=== PATIENT | female | born 1950 | race American Indian/Alaskan Native ===

== ENCOUNTER 2017-07-17 09:30 | Emergency (ER) | payer BC, OTHER ==
[2017-07-17 09:30] VITALS: BMI 29.6
[2017-07-17 09:50] VITALS: RESP 16
[2017-07-17] MEDS ORDERED: Lidocaine 5% Patch TD STA (09:58)
[2017-07-17] MEDS ORDERED: Lidocaine 5% Patch TD ONE (10:09)
--- NOTE | 2017-07-17 10:24 | C.PDOC ---
History Of Present Illness 67 y/o female with past medical history of herniated disk and sciatica presents to the ED complaining of left lower back pain, rated 10, since 3 weeks. Pain is sharp, radiates to the left leg and is worse when she flexes her back or uses the stairs. Patient notes taking tramadol and ibuprofen without relief. Patient was seen at [facility] and was advised to take the epidural injection but she wasnt able to afford it. Denies any further medical complaints. PMD: [facility] Time Seen by Provider: 07/17/17 09:55 Chief Complaint (Nursing): Back Pain History Per: Patient History/Exam Limitations: no limitations Onset/Duration Of Symptoms: Other (x 3 weeks) Current Symptoms Are (Timing): Still Present Quality Of Discomfort: Sharp Pain Scale Rating Of: 10 Past Medical History Vital Signs: Last Vital Signs Temp 98.3 F 07/17/17 09:35 Pulse 115 H 07/17/17 09:35 Resp 16 07/17/17 09:35 BP 148/74 07/17/17 09:35 Pulse Ox 96 07/17/17 11:29 - Medical History PMH: Back Problems, Diabetes, HTN Denies: Asthma, Bronchitis, Cardia Arrhythmia, CHF, COPD, Emphysema, Hypercholesterolemia, Mitral Valve Prolapse, Peripheral Edema, Pneumonia, Pulmonary Embolism, Chronic Kidney Disease, Sleep Apnea Other PMH: Herniated disk, Sciatica Surgical History: Cholecystectomy - [facility] COLONOSCOPY (05/04/14) Family History: States: Unknown Family Hx - Social History Hx Tobacco Use: No Hx Alcohol Use: No Hx Substance Use: No - Immunization History Hx Tetanus Toxoid Vaccination: No Hx Influenza Vaccination: Yes Hx Pneumococcal Vaccination: No Review Of Systems Except As Marked, All Systems Reviewed And Found Negative. (As per HPI, otherwise negative) Musculoskeletal: Positive for: Back Pain (radiates to the left leg) Physical Exam - Physical Exam Appears: Well, In Acute Distress (Patient is crying and is uncomfortable) Skin: Normal Color, Warm, Dry Head: Atraumatic, Normacephalic Eye(s): bilateral: Normal Inspection, PERRL, EOMI Nose: Normal Throat: Normal Neck: Normal Chest: Symmetrical, No Deformity Cardiovascular: Rhythm Regular, No Murmur Respiratory: Normal Breath Sounds, No Accessory Muscle Use Gastrointestinal/Abdominal: Normal Exam Back: Normal Inspection, Other (Tenderness to left lumbar region) Extremity: No Deformity, Other (pain with fluctuation of the left leg) Neurological/Psych: Oriented x3, Normal Speech, Normal Cognition, Normal Cranial Nerves, Normal Motor, Normal Sensation, Normal Reflexes Gait: Steady ED Course And Treatment O2 Sat by Pulse Oximetry: 96 (RA) Pulse Ox Interpretation: Normal Medical Decision Making Medical Decision Making: Time: 09:58 Initial Impression: Lower back pain Plan: Acetaminophen 975mg PO Diazepam 5mg PO Ketorolac 60mg IM Lidocaine 5% 1ea TD Scribe Attestation: Documented by Stan David acting as a scribe for Nicolas English MD. Scribe Attestation: All medical record entries made by the Scribe were at my direction and personally dictated by me. I have reviewed the chart and agree that the record accurately reflects my personal performance of the history, physical exam, medical decision making, and the department course for this patient. I have also personally directed, reviewed, and agree with the discharge instructions and disposition. Disposition Counseled Patient/Family Regarding: Diagnosis, Need For Followup, Rx Given - Disposition Disposition: HOME/ ROUTINE Disposition Time: 11:22 Condition: IMPROVED Additional Instructions: Ms. Sanchez, thank you for letting us take care of you today. Return to the ER if your symptoms worsen, or if any problems. Take the medication listed below as prescribed. Please follow up with your doctor at [facility] next week for a re -evaluation. Prescriptions: Ibuprofen [Motrin Tab] 1 tab PO Q8 PRN #30 tab PRN Reason: Pain, Moderate (4-7) Lidocaine 5% [Lidoderm] 1 ea TD Q12 PRN #20 patch PRN Reason: Pain, Moderate (4-7) oxyCODONE/Acetaminophen [Percocet 5/325 mg Tab] 1 tab PO QID PRN #16 tab PRN Reason: Pain, Severe (8-10) Instructions: Lumbar Disc Herniation (ED), Back Pain (ED) Forms: [facility] (Romanian) Print Language: COLOMBIAN - POA Present On Arrival: None - Clinical Impression Clinical Impression: Low back pain
[2017-07-17 11:53] VITALS: BP 128/77; PULSE 81; TEMP 97.5; O2SAT 97
== END 2017-07-17 12:01 | disposition home or self-care (01) ==
LOC: C.ER 09:30
DX: M54.5 Low back pain (principal)
CPT/HCPCS: 96372; 99284; J1885

== ENCOUNTER 2017-07-20 04:03 | Inpatient (IN) | payer BC, MEDICARE ==
[2017-07-20 04:04] VITALS: BMI 29.6
--- NOTE | 2017-07-20 05:11 | C.PDOC ---
History Of Present Illness 67 year old female presents to ED with complaints of severe left lower extremity pain and has a past medical history of back pain, HTN, diabetes mellitus, and sciatica. Notes that pain radiates down the lateral aspect of her leg in a "shooting" sensation. Patient was last seen in [facility] on July 17 for the same pain. Time Seen by Provider: 07/20/17 05:07 Chief Complaint (Nursing): Lower Extremity Problem/Injury History Per: Patient History/Exam Limitations: no limitations Onset/Duration Of Symptoms: Persistent Current Symptoms Are (Timing): Still Present Severity: Severe Past Medical History Reviewed: Historical Data, Nursing Documentation, Vital Signs Vital Signs: Last Vital Signs Temp 98.6 F 07/20/17 06:53 Pulse 95 H 07/20/17 06:53 Resp 20 07/20/17 06:53 BP 194/97 H 07/20/17 06:53 Pulse Ox 98 07/20/17 06:53 - Medical History PMH: Back Problems, Diabetes, HTN, Chronic Pain (back pain) Denies: No Chronic Diseases, Asthma, Bronchitis, Cardia Arrhythmia, CHF, COPD , Emphysema, Hypercholesterolemia, Mitral Valve Prolapse, Peripheral Edema, Pneumonia, Pulmonary Embolism, Chronic Kidney Disease, Sleep Apnea Surgical History: Cholecystectomy, Endoscopy (05/04/2017) - [facility] Procedures COLONOSCOPY (05/04/14) Family History: States: Unknown Family Hx - Social History Hx Tobacco Use: No Hx Alcohol Use: No Hx Substance Use: No - Immunization History Hx Tetanus Toxoid Vaccination: No Hx Influenza Vaccination: Yes Hx Pneumococcal Vaccination: No Review Of Systems Except As Marked, All Systems Reviewed And Found Negative. Musculoskeletal: Positive for: Leg Pain (severe left lower extremity pain, radiates down lateral aspect of leg) Physical Exam - Physical Exam Appears: No Acute Distress Skin: Normal Color, Warm, Dry Eye(s): bilateral: Normal Inspection, PERRL, EOMI Nose: Normal Throat: Normal Neck: Normal Cardiovascular: Rhythm Regular Respiratory: Normal Breath Sounds Gastrointestinal/Abdominal: Normal Exam Back: Normal Inspection, Straight Leg Raising (positive straight leg 30 degrees : left) Extremity: Normal ROM, No Deformity Neurological/Psych: Oriented x3, Normal Motor, Normal Sensation ED Course And Treatment O2 Sat by Pulse Oximetry: 98 (RA) Pulse Ox Interpretation: Normal Medical Decision Making Medical Decision Makin Initial plan: * Valium 5mg PO * Toradol 15mg IM * Percocet 2 tab PO * Re-eval 0638 Upon re-evaluation, patient is still in pain. will turn over to next attending. Disposition Counseled Patient/Family Regarding: Diagnosis - Disposition Disposition: HOSPITALIZED Disposition Time: 07:01 Condition: FAIR Forms: [facility] (Ivorian) - Clinical Impression Clinical Impression: Sciatica - Scribe Statement Masha Mederos Provider Attestation: Scribe Attestation: Documented by Masha Mederos acting as a scribe for Rebecca Lehman MD. Scribe Attestation: All medical record entries made by the Scribe were at my direction and personally dictated by me. I have reviewed the chart and agree that the record accurately reflects my personal performance of the history, physical exam, medical decision making, and the department course for this patient. I have also personally directed, reviewed, and agree with the discharge instructions and disposition.
[2017-07-20] MEDS ORDERED: Oxycodone/Acetaminophen 5/325 mg Tab PO STA (05:50)
[2017-07-20] MEDS ORDERED: Oxycodone/Acetaminophen 5/325 mg Tab ONE (05:56)
[2017-07-20] MEDS ORDERED: Morphine 4 MG/ML VIAL IV STA (07:22)
[2017-07-20 07:57] LABS: BASO % 1.1 % (0.0-2.0); EOS % 0.2 % (0.0-4.0); HEMOGLOBIN 14.9 g/dL (11.0-16.0); LYMPH # 0.7 K/uL (1.0-4.3); LYMPH % 15.9 % (20.0-40.0); MEAN CELL VOLUME 93.5 fL (81.0-99.0); MEAN CORPUSCULAR HEMOGLOBIN 32.1 pg (27.0-31.0); MEAN CORPUSCULAR HGB CONC 34.3 g/dL (33.0-37.0); MEAN PLATELET VOLUME 7.3 fL (7.2-11.7); MONO # 0.2 K/uL (0.0-0.8); NEUT # 3.4 K/uL (1.8-7.0); NEUT % 77.8 % (50.0-75.0); RBC 4.66 Mil/uL (3.80-5.20); RED CELL DISTRIBUTION WIDTH 13.4 % (11.5-14.5); WHITE BLOOD COUNT 4.4 K/uL (4.8-10.8)
[2017-07-20 08:15] LABS: ALB/GLOB RATIO 1.1 (1.0-2.1); ALBUMIN 4.2 g/dL (3.5-5.0); ALT/SGPT 41 U/L (9-52); AST/SGOT 32 U/L (14-36); BLOOD UREA NITROGEN 8 mg/dL (7-17); CALCIUM 8.5 mg/dl (8.6-10.4); GFR AFRICAN-AMERICAN > 60; GFR NON-AFRICAN AMERICAN > 60; LIPASE 338 U/L (23-300)
[2017-07-20] MEDS ORDERED: Morphine 4 MG/ML VIAL ONE (08:16)
[2017-07-20 08:18] LABS: SQUAMOUS EPITHIAL 2 /hpf (0-5); URINE BILIRUBIN NEGATIVE (NEGATIVE); URINE BLOOD NEGATIVE (NEGATIVE); URINE CLARITY Clear (Clear); URINE COLOR Straw (YELLOW); URINE GLUCOSE (UA) 2+ mg/dL (Normal); URINE LEUKOCYTE ESTERASE NEG Leu/uL (Negative); URINE NITRATE NEGATIVE (NEGATIVE); URINE PROTEIN NEGATIVE (NEGATIVE); URINE UROBILINOGEN NORMAL mg/dL (0.2-1.0)
--- NOTE | 2017-07-20 08:34 | RAD ---
PROCEDURE: Radiographs of the Lumbar Spine. HISTORY: back pain COMPARISON: No prior. FINDINGS: BONES: Normal alignment. No listhesis. No fracture. Mild lumbar spondylosis DISC SPACES: Posterior L5-S1 disc space narrowing OTHER FINDINGS: None. IMPRESSION: Mild senescent changes
[2017-07-20 13:07] VITALS: RESP 20
[2017-07-20] MEDS ORDERED: Lidocaine 5% Patch TD PRN (16:25)
[2017-07-20] MEDS ORDERED: Pneumococcal 23-Valent Vaccine IM ONE (16:52)
[2017-07-20] MEDS ORDERED: Lidocaine 5% Patch TD SCH (17:00)
[2017-07-20] MEDS: Enoxaparin 40 mg Syringe SC SCH (17:19)
[2017-07-20] MEDS: (Novolog) Insulin Aspart, Recombinant 100 u/ml 10 ml vial SC SCH ×2 (17:19→21:30)
[2017-07-20] MEDS: Morphine 4 MG/ML VIAL IV PRN (19:00)
[2017-07-21] MEDS: (Novolog) Insulin Aspart, Recombinant 100 u/ml 10 ml vial SC SCH ×4 (08:10→21:08)
[2017-07-21] MEDS: Morphine 4 MG/ML VIAL IV PRN (08:11)
[2017-07-21] MEDS: Enoxaparin 40 mg Syringe SC SCH (09:56)
[2017-07-21] MEDS ORDERED: Influenza Vaccine 60 mcg/0.5 mL SYR (4YR UP) IM ONE (12:52)
--- NOTE | 2017-07-21 14:20 | CP.PCM.HP ---
Past Patient History - Past Medical History & Family History Past Medical History?: Yes - Past Social History Smoking Status: Never Smoked - CARDIAC Hx Congestive Heart Failure: No Hx Hypercholesterolemia: No Hx Hypertension: Yes - PULMONARY Hx Chronic Obstructive Pulmonary Disease (COPD): No - NEUROLOGICAL Hx Neurological Disorder: No - HEENT Hx HEENT Problems: Yes Hx Glaucoma: Yes - RENAL Hx Chronic Kidney Disease: No - ENDOCRINE/METABOLIC Hx Endocrine Disorders: Yes Hx Diabetes Mellitus Type 2: Yes - HEMATOLOGICAL/ONCOLOGICAL Hx Blood Disorders: No - INTEGUMENTARY Hx Dermatological Problems: No - MUSCULOSKELETAL/RHEUMATOLOGICAL Hx Musculoskeletal Disorders: Yes Hx Back Pain: Yes Hx Herniated Disk: Yes Other/Comment: Sciatica - GASTROINTESTINAL Hx Gastrointestinal Disorders: Yes Hx Constipation: Yes - GENITOURINARY/GYNECOLOGICAL Hx Genitourinary Disorders: No - PSYCHIATRIC Hx Substance Use: No - SURGICAL HISTORY Hx Cholecystectomy: Yes - ANESTHESIA Hx Anesthesia: Yes Hx Anesthesia Reactions: No Hx Malignant Hyperthermia: No Meds Allergies/Adverse Reactions: Allergies Allergy/AdvReac Type Severity Reaction Status Date / Time No Known Allergies Allergy Verified 11/06/13 17:32 Results - Vital Signs Recent Vital Signs: Last Vital Signs Temp 98 F 07/21/17 08:00 Pulse 94 H 07/21/17 08:00 Resp 20 07/21/17 08:00 BP 108/67 07/21/17 08:00 Pulse Ox 96 07/21/17 08:00 - Labs Result Diagrams: 07/20/17 07:52 07/20/17 07:52 Labs: Laboratory Results - last 24 hr 07/20/17 07/20/17 07/21/17 16:37 21:25 07:24 POC Glucose (mg/dL) 284 H 273 H 191 H 07/21/17 11:39 POC Glucose (mg/dL) 266 H
--- NOTE | 2017-07-21 16:16 | MRI ---
PROCEDURE: MR LUMBAR SPINE WITHOUT CONTRAST HISTORY: Left low back pain, weakness COMPARISON: Plain radiographs from 07/20/2017. TECHNIQUE: Multiecho multiplanar sequences were performed through the lumbar spine without the use of intravenous contrast. FINDINGS: There is 5 mm degenerative retrolisthesis of L5 on S1. There is normal lumbar lordosis. There is no acute fracture, spondylolysis or spondylolisthesis. There are degenerative endplate marrow changes at L5-S1, otherwise signal is within normal limits. The conus medullaris terminates at a normal level and the nerve roots of cauda equina are normal. T12-L1: No disc herniation, spinal canal stenosis or neural foraminal narrowing. L1-2: No disc herniation, spinal canal stenosis or neural foraminal narrowing. L2-3: No disc herniation, spinal canal stenosis or neural foraminal narrowing. L3-4: No disc herniation, spinal canal stenosis or neural foraminal narrowing. L4-5: Mild posterior disc bulge and moderate bilateral facet arthropathy without neural foraminal or spinal canal. L5-S1: Diffuse posterior disc bulge with superimposed left posterolateral disc protrusion mildly displaces the traversing left S1 nerve root. Moderate bilateral facet arthropathy contributes to severe right and moderate left neural foraminal stenosis. No spinal canal stenosis. OTHER FINDINGS: The paraspinous soft tissues are normal. There is a simple cyst in the right kidney. IMPRESSION: Mild multilevel degenerative disc disease, worse at L5-S1 with a left posterolateral disc protrusion which mildly displaces the traversing left S1 nerve root. Moderate bilateral facet arthropathy contribute to severe right and moderate left neural foraminal stenosis. No spinal canal stenosis.
--- NOTE | 2017-07-21 17:24 | CP.PCM.CON ---
History of Present Illness - History of Present Illness History of Present Illness: 67 yr old woman with pmh of dm, past herniated lumbar disc who presents today with acute left leg pain, 10/10 throbbing and stabbing, radiating from her left lumbar region down the back of her leg to her left toe, worsened by weakness, and made better by rest. She has had this pain intermittently in the past, but now is not able to walk and has some weakness. MRI shows a herniated disc in the lumbar region, but no cord compression. Official report is pending. There is no urinary or fecal incontinence. pMH: As above. PSH: Gallbladder surgery FH/SH: has 2 children. No tobacco, no etoh. All: nkda. On exam: AAOX3. Pupils 3mm-2mm with light. EOMI. CN 2-12 normal. Motor: Decreased ROM in left lumbar region to 40 degrees 4/5 left gcnemius, left quads and hams and tibialis anterior Straight leg raising test is positive in left side. Sensory: decresed ft, pin, in left L4. L5 distribution. DTR: +2 ul and ll bl toes downgoing. No clonus. Past Patient History - Past Medical History & Family History Past Medical History?: Yes - Past Social History Smoking Status: Never Smoked - CARDIAC Hx Congestive Heart Failure: No Hx Hypercholesterolemia: No Hx Hypertension: Yes - PULMONARY Hx Chronic Obstructive Pulmonary Disease (COPD): No - NEUROLOGICAL Hx Neurological Disorder: No - HEENT Hx HEENT Problems: Yes Hx Glaucoma: Yes - RENAL Hx Chronic Kidney Disease: No - ENDOCRINE/METABOLIC Hx Endocrine Disorders: Yes Hx Diabetes Mellitus Type 2: Yes - HEMATOLOGICAL/ONCOLOGICAL Hx Blood Disorders: No - INTEGUMENTARY Hx Dermatological Problems: No - MUSCULOSKELETAL/RHEUMATOLOGICAL Hx Musculoskeletal Disorders: Yes Hx Back Pain: Yes Hx Herniated Disk: Yes Other/Comment: Sciatica - GASTROINTESTINAL Hx Gastrointestinal Disorders: Yes Hx Constipation: Yes - GENITOURINARY/GYNECOLOGICAL Hx Genitourinary Disorders: No - PSYCHIATRIC Hx Substance Use: No - SURGICAL HISTORY Hx Cholecystectomy: Yes - ANESTHESIA Hx Anesthesia: Yes Hx Anesthesia Reactions: No Hx Malignant Hyperthermia: No Meds Allergies/Adverse Reactions: Allergies Allergy/AdvReac Type Severity Reaction Status Date / Time No Known Allergies Allergy Verified 11/06/13 17:32 - Medications Medications: Current Medications Enoxaparin Sodium (Lovenox) 40 mg SC DAILY [facility] Last Admin: 07/21/17 09:56 Dose: 40 mg Gabapentin (Neurontin) 300 mg PO BID [facility] Last Admin: 07/21/17 09:56 Dose: 300 mg Glipizide (Glucotrol) 10 mg PO BID [facility] Last Admin: 07/21/17 09:56 Dose: 10 mg Ibuprofen (Motrin Tab) 800 mg PO QID PRN PRN Reason: Pain, Mild (1-3) Insulin Aspart (Novolog) 0 unit SC ACHS [facility] PRN Reason: Protocol Last Admin: 07/21/17 12:30 Dose: 4 unit Lidocaine (Lidoderm) 1 ea TD DAILY PRN PRN Reason: Pain, Mild (1-3) Metformin HCl (Glucophage) 500 mg PO BID [facility] Last Admin: 07/21/17 09:56 Dose: 500 mg Morphine Sulfate (Morphine) 3 mg IV Q6 PRN PRN Reason: Pain, Mild (1-3) Last Admin: 07/21/17 08:11 Dose: 3 mg Tramadol HCl (Ultram) 50 mg PO QID [facility] Last Admin: 07/21/17 13:08 Dose: 50 mg Results - Vital Signs Recent Vital Signs: Last Vital Signs Temp 98.1 F 07/21/17 15:00 Pulse 98 H 07/21/17 15:00 Resp 20 07/21/17 15:00 BP 126/72 07/21/17 15:00 Pulse Ox 95 07/21/17 15:00 - Labs Result Diagrams: 07/20/17 07:52 07/20/17 07:52 Labs: Laboratory Results - last 24 hr 07/20/17 07/21/17 07/21/17 21:25 07:24 11:39 POC Glucose (mg/dL) 273 H 191 H 266 H 07/21/17 16:09 POC Glucose (mg/dL) 135 H - Impressions Impression: MRI L/S Spine: Shows L5 nerve impinging S1 nerve root with no cord compression. Assessment & Plan - Assessment and Plan (Free Text) Assessment: 67 yr old woman with L5 radiculopathy, severe, spinal stenosis, compressing S1 nerve root. She does not have cord compression, but would benefit from epidural injection. This can be done outpatient after pain management and physical therapy.
--- NOTE | 2017-07-22 07:20 | CP.PCM.PN ---
Subjective - Date & Time of Evaluation Date of Evaluation: 07/22/17 Time of Evaluation: 07:16 - Subjective Subjective: Ms. Sanchez was seen and examined at the bedside. She is alert, oriented in all spheres. She is able to follow simple commands. She further states of experiencing low back pain with pain scale at 5-6/10, She is able to move her lower extremities and + CMS. She ambulates within her room needs assistance during ambulation. There was no untoward events overnight. Objective - Vital Signs/Intake and Output Vital Signs (last 24 hours): Temp Pulse Resp BP Pulse Ox 97.5 F L 89 20 136/71 96 07/22/17 00:00 07/22/17 00:00 07/22/17 00:00 07/22/17 00:00 07/22/17 00:45 Intake and Output: 07/22/17 07/22/17 06:59 18:59 Intake Total 600 Output Total 400 Balance 200 - Medications Medications: Current Medications Enoxaparin Sodium (Lovenox) 40 mg SC DAILY [facility] Last Admin: 07/21/17 09:56 Dose: 40 mg Gabapentin (Neurontin) 300 mg PO BID [facility] Last Admin: 07/21/17 17:49 Dose: 300 mg Glipizide (Glucotrol) 10 mg PO BID [facility] Last Admin: 07/21/17 17:49 Dose: 10 mg Ibuprofen (Motrin Tab) 800 mg PO QID PRN PRN Reason: Pain, Mild (1-3) Insulin Aspart (Novolog) 0 unit SC ACHS [facility] PRN Reason: Protocol Last Admin: 07/21/17 21:08 Dose: Not Given Lidocaine (Lidoderm) 1 ea TD DAILY PRN PRN Reason: Pain, Mild (1-3) Last Admin: 07/21/17 17:48 Dose: 1 ea Metformin HCl (Glucophage) 500 mg PO BID [facility] Last Admin: 07/21/17 17:48 Dose: 500 mg Morphine Sulfate (Morphine) 3 mg IV Q6 PRN PRN Reason: Pain, Mild (1-3) Last Admin: 07/21/17 08:11 Dose: 3 mg Tramadol HCl (Ultram) 50 mg PO QID [facility] Last Admin: 07/21/17 22:41 Dose: 50 mg - Labs Labs: 07/20/17 07:52 07/20/17 07:52 - Constitutional Appears: No Acute Distress - Head Exam Head Exam: NORMAL INSPECTION - Extremities Exam Extremities Exam: Full ROM - Neurological Exam Neurological Exam: Alert, Awake, Oriented x3 Neuro motor strength exam: Left Upper Extremity: 5, Right Upper Extremity: 5, Left Lower Extremity: 5, Right Lower Extremity: 5 Additional comments: She is able to follow commands. Assessment and Plan (1) Radiculopathy Assessment & Plan: Case discussed with Dr. Zhong, continue all current medical treatment. Recommend physical therapy for rediculopathy and lower extremities strengthening. She can go back to her pain management for epidural injection. Status: Acute
[2017-07-22] MEDS: (Novolog) Insulin Aspart, Recombinant 100 u/ml 10 ml vial SC SCH ×4 (07:48→21:22)
[2017-07-22] MEDS: Enoxaparin 40 mg Syringe SC SCH (09:33)
[2017-07-22] MEDS: Morphine 4 MG/ML VIAL IV PRN (12:08)
[2017-07-22] MEDS ORDERED: Morphine 4 MG/ML VIAL IV PRN (15:47)
--- NOTE | 2017-07-22 18:42 | CP.PCM.PN ---
Subjective - Date & Time of Evaluation Date of Evaluation: 07/22/17 Time of Evaluation: 18:42 Objective - Vital Signs/Intake and Output Vital Signs (last 24 hours): Temp Pulse Resp BP Pulse Ox 98.3 F 88 20 114/67 95 07/22/17 16:00 07/22/17 16:00 07/22/17 16:00 07/22/17 16:00 07/22/17 16:00 Intake and Output: 07/22/17 07/22/17 06:59 18:59 Intake Total 600 400 Output Total 400 Balance 200 400 - Medications Medications: Current Medications Bisacodyl (Dulcolax) 10 mg PO [facility] Enoxaparin Sodium (Lovenox) 40 mg SC DAILY [facility] Last Admin: 07/22/17 09:33 Dose: 40 mg Gabapentin (Neurontin) 300 mg PO BID [facility] Last Admin: 07/22/17 18:12 Dose: 300 mg Glipizide (Glucotrol) 10 mg PO BID [facility] Last Admin: 07/22/17 18:12 Dose: 10 mg Ibuprofen (Motrin Tab) 800 mg PO QID PRN PRN Reason: Pain, moderate (4-7) Insulin Aspart (Novolog) 0 unit SC [facility] PRN Reason: Protocol Last Admin: 07/22/17 17:28 Dose: Not Given Lidocaine (Lidoderm) 1 ea TD DAILY PRN PRN Reason: Pain, Mild (1-3) Last Admin: 07/21/17 17:48 Dose: 1 ea Metformin HCl (Glucophage) 500 mg PO BID [facility] Last Admin: 07/22/17 18:12 Dose: 500 mg Morphine Sulfate (Morphine) 3 mg IV Q6 PRN PRN Reason: Pain, severe (8-10) Pneumococcal Polyvalent Vaccine (Pneumovax 23 Vaccine) 0.5 ml IM .ONCE ONE Stop: 07/24/17 10:01 Tramadol HCl (Ultram) 50 mg PO QID [facility] Last Admin: 07/22/17 18:14 Dose: Not Given - Labs Labs: 07/20/17 07:52 07/20/17 07:52
[2017-07-22] MEDS ORDERED: Bisacodyl 5mg EC Tab PO SCH (22:00)
[2017-07-23] MEDS: (Novolog) Insulin Aspart, Recombinant 100 u/ml 10 ml vial SC SCH ×3 (08:06→17:06)
[2017-07-23 08:20] VITALS: O2SAT 98
[2017-07-23] MEDS: Enoxaparin 40 mg Syringe SC SCH (09:59)
--- NOTE | 2017-07-23 13:26 | CP.PCM.PN ---
Subjective - Date & Time of Evaluation Date of Evaluation: 07/23/17 Time of Evaluation: 13:23 - Subjective Subjective: Ms. Sanchez was seen and examined at the bedside. She is alert, oriented in all spheres. She is able to answer questions appropriately. She just finished her physical therapy with a walker. She further states that she is being transferred to a rehab facility. There was no untoward events overnight. Objective - Vital Signs/Intake and Output Vital Signs (last 24 hours): Temp Pulse Resp BP Pulse Ox 98.2 F 82 20 131/79 98 07/23/17 08:18 07/23/17 11:15 07/23/17 08:18 07/23/17 11:15 07/23/17 11:15 Intake and Output: 07/23/17 07/23/17 06:59 18:59 Intake Total 800 Balance 800 - Medications Medications: Current Medications Bisacodyl (Dulcolax) 10 mg PO HS [facility] Last Admin: 07/22/17 21:21 Dose: 10 mg Enoxaparin Sodium (Lovenox) 40 mg SC DAILY [facility] Last Admin: 07/23/17 09:59 Dose: 40 mg Gabapentin (Neurontin) 300 mg PO BID [facility] Last Admin: 07/23/17 09:59 Dose: 300 mg Glipizide (Glucotrol) 10 mg PO BID [facility] Last Admin: 07/23/17 09:59 Dose: 10 mg Ibuprofen (Motrin Tab) 800 mg PO QID PRN PRN Reason: Pain, moderate (4-7) Insulin Aspart (Novolog) 0 unit SC ACHS [facility] PRN Reason: Protocol Last Admin: 07/23/17 12:10 Dose: 3 unit Lidocaine (Lidoderm) 1 ea TD DAILY PRN PRN Reason: Pain, Mild (1-3) Last Admin: 07/21/17 17:48 Dose: 1 ea Metformin HCl (Glucophage) 500 mg PO BID [facility] Last Admin: 07/23/17 09:59 Dose: 500 mg Morphine Sulfate (Morphine) 3 mg IV Q6 PRN PRN Reason: Pain, severe (8-10) Last Admin: 07/23/17 00:35 Dose: 3 mg Pneumococcal Polyvalent Vaccine (Pneumovax 23 Vaccine) 0.5 ml IM .ONCE ONE Stop: 07/24/17 10:01 Tramadol HCl (Ultram) 50 mg PO QID [facility] Last Admin: 07/23/17 09:59 Dose: 50 mg - Labs Labs: 07/20/17 07:52 07/20/17 07:52 - Constitutional Appears: No Acute Distress - Head Exam Head Exam: NORMAL INSPECTION - Neurological Exam Neurological Exam: Awake, Oriented x3 Neuro motor strength exam: Left Upper Extremity: 5, Right Upper Extremity: 5, Left Lower Extremity: 5, Right Lower Extremity: 5 Additional comments: Neurological unchanged from previous examination. Assessment and Plan (1) Radiculopathy Assessment & Plan: Case discussed with Dr. Zhong, continue all current medical and physical therapies. Recommend epidural injection for her lumbar radiculopathy. There is no new recommendations from neurology. Status: Acute
--- NOTE | 2017-07-23 15:17 | CP.PCM.PN ---
Subjective - Date & Time of Evaluation Date of Evaluation: 07/23/17 Time of Evaluation: 15:17 Objective - Vital Signs/Intake and Output Vital Signs (last 24 hours): Temp Pulse Resp BP Pulse Ox 98.2 F 82 20 131/79 98 07/23/17 08:18 07/23/17 11:15 07/23/17 08:18 07/23/17 11:15 07/23/17 11:15 Intake and Output: 07/23/17 07/23/17 06:59 18:59 Intake Total 800 480 Balance 800 480 - Medications Medications: Current Medications Bisacodyl (Dulcolax) 10 mg PO HS [facility] Last Admin: 07/22/17 21:21 Dose: 10 mg Enoxaparin Sodium (Lovenox) 40 mg SC DAILY [facility] Last Admin: 07/23/17 09:59 Dose: 40 mg Gabapentin (Neurontin) 300 mg PO BID [facility] Last Admin: 07/23/17 09:59 Dose: 300 mg Glipizide (Glucotrol) 10 mg PO BID [facility] Last Admin: 07/23/17 09:59 Dose: 10 mg Ibuprofen (Motrin Tab) 800 mg PO QID PRN PRN Reason: Pain, moderate (4-7) Insulin Aspart (Novolog) 0 unit SC ACHS [facility] PRN Reason: Protocol Last Admin: 07/23/17 12:10 Dose: 3 unit Lidocaine (Lidoderm) 1 ea TD DAILY PRN PRN Reason: Pain, Mild (1-3) Last Admin: 07/21/17 17:48 Dose: 1 ea Metformin HCl (Glucophage) 500 mg PO BID [facility] Last Admin: 07/23/17 09:59 Dose: 500 mg Morphine Sulfate (Morphine) 3 mg IV Q6 PRN PRN Reason: Pain, severe (8-10) Last Admin: 07/23/17 00:35 Dose: 3 mg Pneumococcal Polyvalent Vaccine (Pneumovax 23 Vaccine) 0.5 ml IM .ONCE ONE Stop: 07/24/17 10:01 Tramadol HCl (Ultram) 50 mg PO QID [facility] Last Admin: 07/23/17 14:07 Dose: 50 mg - Labs Labs: 07/20/17 07:52 07/20/17 07:52
[2017-07-23 17:33] VITALS: BP 153/89; PULSE 105; TEMP 98
[2017-07-23] MEDS ORDERED: Pneumococcal 23-Valent Vaccine IM ONE (18:45)
== END 2017-07-23 19:43 | DRG 552 ==
LOC: C.ER 04:03 → C.9E 08:02 → C.3T 13:00 → OBSVTOIN 07-22 14:16
PROVIDERS: ADMIT Internal Medicine Critical Care Medicine; ATTEND Internal Medicine Critical Care Medicine
DX: M48.061 Spinal stenosis, lumbar region without neurogenic claudication (principal); E11.9 Type 2 diabetes mellitus without complications; I10 Essential (primary) hypertension; M54.16 Radiculopathy, lumbar region; Z79.4 Long term (current) use of insulin